=== PATIENT | female | born 1985 | race Caucasian/White ===

== ENCOUNTER → 2018-08-05 | Outpatient (CLI) | payer OTHER ==
[~2018-08-05] VITALS: Ht 162.6 cm; Wt 65.8 kg
[~2018-08-05] MED LIST: IBUP400T18 PO; PRED50TA PO; SINCALIDE 1.32 MCG in IV NORMAL SALINE 50ML 30 ML IV ONE
--- NOTE | 2018-08-05 12:45 | RAD ---
EXAM: Nuclear hepatobiliary scan. HISTORY: Pain. TECHNIQUE: Following intravenous administration of 5.5 mCi Tc 99m Choletec, anterior images of the abdomen were obtained at five minute intervals through one hour. Subsequently, 1.32 mcg CCK was administered and additional images to assess gallbladder ejection fraction were obtained. FINDINGS: There is prompt radiotracer uptake by the liver. No focal defect is seen. There is normal excretion into the biliary tree. The gallbladder is visualized within 15 minutes and there is free flow into the duodenum. The gallbladder ejection fraction is 10.2%. IMPRESSION: Decreased gallbladder ejection fraction of 10.2%. Electronically signed by: Leah Davalos MD (08/05/2018 12:42 PM) [facility]
== END | disposition home or self-care (01) ==
LOC: NM 07:43
PROVIDERS: ATTEND Internal Medicine Gastroenterology
DX: R10.13 Epigastric pain (principal)
CPT/HCPCS: 78226; 96374; 96375; A9537; J2805

== ENCOUNTER 2018-08-07 18:53 | Emergency (ER) | payer OTHER ==
[~2018-08-07] VITALS: Ht 162.6 cm; Wt 65.8 kg
--- NOTE | 2018-08-07 18:57 | ED.ADGEN ---
Past History Past Medical History: Bronchitis, Migraines Adult General Chief Complaint Chief Complaint ".. I hit my head.. 2 days ago.. but I still got a headache..." HPI HPI Patient is a 32 year old female who presents with above hx and complaints persistent headache after striking it on shelf. Patient has mild. Photophobia. Nausea. Patient has contusion left forehead. Patient does have occasional migraines or headaches. Patient denies any travel or specific ill contacts. Patient up-to-date vaccinations. Patient has had recent episodes of bronchitis. Patient's child also had upper respiratory infection. Review of Systems Review of Systems Constitutional: Denies fever or chills [] Eyes: Denies change in visual acuity, redness, or eye pain [] HENT: Denies nasal congestion or sore throat [] Respiratory: Denies cough or shortness of breath [] Cardiovascular: No additional information not addressed in HPI [] GI: Denies abdominal pain, nausea, vomiting, bloody stools or diarrhea [] : Denies dysuria or hematuria [] Musculoskeletal: Denies back pain or joint pain [] Integument: Denies rash or skin lesions [] Neurologic:Complaints of headache,. Denies focal weakness or sensory changes [] Endocrine: Denies polyuria or polydipsia [] All other systems were reviewed and found to be within normal limits, except as documented in this note. Family History Family History Noncontributory Current Medications Current Medications Current Medications Medications (Trade) Dose Ordered Sig/[facility] Start Time Stop Time Status Last Admin Dose Admin Albuterol Sulfate (Ventolin Hfa Inhaler) 2 puff 1X ONCE 08/07/18 20:00 08/07/18 20:01 DC 08/07/18 20:25 2 PUFF Prednisone (Prednisone) 60 mg 1X ONCE 08/07/18 20:00 08/07/18 20:01 DC 08/07/18 20:29 60 MG Allergies Allergies Allergies Coded Allergies Type Severity Reaction Last Updated Verified Penicillins Allergy Unknown 08/05/18 Yes esomeprazole Adverse Reaction Mild 08/05/18 Yes omeprazole Adverse Reaction Mild 08/05/18 Yes ranitidine Adverse Reaction Mild 08/05/18 Yes Physical Exam Physical Exam Constitutional: Well developed, well nourished, moderately acute distress, non- toxic appearance. [] HENT: Normocephalic, contusion to left side of forehead, bilateral external ears normal, oropharynx moist, no oral exudates, nose normal. [] Eyes: PERRLA, EOMI, conjunctiva normal, no discharge. [] Neck: Normal range of motion, no tenderness, supple, no stridor. [] Cardiovascular:Heart rate regular rhythm, no murmur [] Lungs & Thorax: Bilateral breath sounds clear to auscultation [] Abdomen: Bowel sounds normal, soft, no tenderness, no masses, no pulsatile masses. [] Skin: Warm, dry, no erythema, no rash. [] Back: No tenderness, no CVA tenderness. [] Extremities: No tenderness, no cyanosis, no clubbing, ROM intact, no edema. [] Neurologic: Alert and oriented X 3, normal motor function, normal sensory function, no focal deficits noted. []DTRs are +2 patella and brachial. [employer] are equal. No drift. Psychologic: Affect anxious, judgement normal, mood normal. [] Current Patient Data Vital Signs Vital Signs Date Time Temp Pulse Resp B/P (MAP) Pulse Ox O2 Delivery O2 Flow Rate FiO2 08/07/18 19:08 98.6 72 20 99 Room Air Lab Results Laboratory Tests Test 08/07/18 19:30 Urine Collection Type Unknown Urine Color Yellow Urine Clarity Clear Urine pH 6.5 Urine Specific [place] 1.010 Urine Protein Neg (NEG-TRACE) Urine Glucose (UA) Neg mg/dL (NEG) Urine Ketones (Stick) Neg mg/dL (NEG) Urine Blood Mod (NEG) Urine Nitrite Neg (NEG) Urine Bilirubin Neg (NEG) Urine Urobilinogen Dipstick 0.2 mg/dL (0.2 mg/dL) Urine Leukocyte Esterase Neg (NEG) Urine RBC 1-2 /HPF (0-2) Urine WBC 0 /HPF (0-4) Urine Squamous Epithelial Cells Occ /LPF Urine Bacteria 0 /HPF (0-FEW) Urine Opiates Screen Neg (NEG) Urine Methadone Screen Neg (NEG) Urine Barbiturates Neg (NEG) Urine Phencyclidine Screen Neg (NEG) Urine Amphetamine/Methamphetamine Neg (NEG) Urine Benzodiazepines Screen Neg (NEG) Urine Cocaine Screen Neg (NEG) Urine Cannabinoids Screen Neg (NEG) Urine Ethyl Alcohol Neg (NEG) EKG EKG [] Radiology/Procedures Radiology/Procedures [] Course & Med Decision Making Course & Med Decision Making Pertinent Labs and Imaging studies reviewed. (See chart for details). Continue ice packs as needed for pain. Tylenol and ibuprofen for discomfort. Follow-up primary care. Return if any concerns. Use MDI 2 puffs 4 times day. [] Final Impression Final Impression 1. Headache 2. Head injury-possible concussion[] 3. Bronchitis Dragon Disclaimer Dragon Disclaimer This electronic medical record was generated, in whole or in part, using a voice recognition dictation system. QUINCY FIGUEREDO MD Aug 07, 2018 18:57
[2018-08-07 19:08] VITALS: BP 119/89
[2018-08-07] MEDS ORDERED: PRED50TA PO (19:57)
[2018-08-07] MEDS ORDERED: IBUP400T18 PO (19:57)
[2018-08-07 19:58] LABS: BACTERIA,URINE 0 /HPF (0-FEW); BILIRUBIN,URINE NEG (NEG); CLARITY,URINE CLEAR; COLOR,URINE YELLOW; GLUCOSE,URINE NEG (NEG); NITRITE,URINE NEG (NEG); SQUAMOUS EPITHELIAL CELL,UR OCC /LPF; UROBILINOGEN,URINE 0.2 mg/dL (0.2 mg/dL); WBC,URINE 0 /HPF (0-4)
[2018-08-07 19:59] LABS: BARBITURATES NEG (NEG); BENZODIAZEPINES NEG (NEG); CANNABINOIDS NEG (NEG); COCAINE NEG (NEG); METHADONE NEG (NEG); OPIATES NEG (NEG); PHENCYCLIDINE NEG (NEG)
[2018-08-07 20:00] LABS: AMPHETAMINE/METHAMPHETAMINE NEG (NEG)
[2018-08-07] MEDS ORDERED: predniSONE 20 MG TABLET PO ONE (20:00)
[2018-08-07] MEDS ORDERED: ALBUTEROL SULFATE 8GM INHALER. INH ONE (20:00)
--- NOTE | 2018-08-07 20:25 | RAD ---
CT head without contrast: Reason for examination: Hit anterior portion of head yesterday. Still has headaches and dizziness. Axial images were obtained through the brain. No contrast was administered. Exposure: One or more of the following individualized dose reduction techniques were utilized for this examination: 1. Automated exposure control 2. Adjustment of the mA and/or kV according to patient size 3. Use of iterative reconstruction technique. The ventricular systems are symmetric and not abnormally dilated. No midline shift is seen. No intracranial hemorrhage, infarct, mass or edema is seen. No abnormalities are seen at the orbits. The paranasal sinuses and mastoid air cells are clear. No acute abnormality seen in the calvarium. IMPRESSION: No acute intracranial abnormality evident. Electronically signed by: Raisa Sweeney MD (08/07/2018 8:21 PM) [facility]
== END 2018-08-07 20:53 | disposition home or self-care (01) ==
LOC: ER 18:53
DX: S09.90XA Unspecified injury of head, initial encounter (principal); J40 Bronchitis, not specified as acute or chronic; G43.909 Migraine, unspecified, not intractable, without status migrainosus; Z88.0 Allergy status to penicillin; Z88.8 Allergy status to other drugs, medicaments and biological substances; W22.01XA Walked into wall, initial encounter; Y93.89 Activity, other specified; Y92.89 Other specified places as the place of occurrence of the external cause; Y99.8 Other external cause status
CPT/HCPCS: 36415; 70450; 80307; 81001; 94640; 99285; J7512; J7613; G0479

== ENCOUNTER 2018-09-01 17:48 | Emergency (ER) | payer OTHER ==
[~2018-09-01] VITALS: Ht 162.6 cm; Wt 64.0 kg
[~2018-09-01 17:48] MED LIST changes: -SINCALIDE 1.32 MCG in IV NORMAL SALINE 50ML 30 ML IV ONE
[2018-09-01] MEDS ORDERED: SODIUM PHOSPHATES 19/7GM 133 ML ENEMA. PR ONE (18:30)
[2018-09-01] MEDS ORDERED: MAGNESIUM HYDROXIDE 2,400 MG/30 ML ORAL.SUSP. PO ONE (18:30)
[2018-09-01 18:42] LABS: BASO % 1 % (0-3); EOS % 1 % (0-3); HEMATOCRIT 40.2 % (36.0-47.0); HEMOGLOBIN 13.4 g/dL (12.0-15.5); LYMPH # 1.3 x10^3/uL (1.0-4.8); LYMPH % 30 % (24-48); MEAN CORPUSCULAR HEMOGLOBIN 30 pg (25-35); MEAN CORPUSCULAR HGB CONC 33 g/dL (31-37); MEAN CORPUSCULAR VOLUME 89 fL (79-100); MONO # 0.4 x10^3/uL (0.0-1.1); MONO % 10 % (0-9); NEUT # 2.7 x10^3uL (1.8-7.7); NEUT % 59 % (31-73); PLATELET COUNT 197 x10^3/uL (140-400); RED BLOOD COUNT 4.51 x10^6/uL (3.50-5.40); RED CELL DISTRIBUTION WIDTH 12.9 % (11.5-14.5); WHITE BLOOD COUNT 4.5 x10^3/uL (4.0-11.0)
[2018-09-01 18:59] LABS: ALBUMIN 3.4 g/dL (3.4-5.0); ALBUMIN/GLOBULIN RATIO 1.1 (1.0-1.7); CALCIUM 8.2 mg/dL (8.5-10.1); CREATININE 0.9 mg/dL (0.6-1.0); GFR 71.7; POTASSIUM 3.9 mmol/L (3.5-5.1); TOTAL BILIRUBIN 0.3 mg/dL (0.2-1.0); TOTAL PROTEIN 6.6 g/dL (6.4-8.2)
[2018-09-01] MEDS ORDERED: IOHEXOL 300 MG/ML 75 ML VIAL. IV ONE (20:15)
--- NOTE | 2018-09-01 22:02 | PHYS DOC ---
Adult General Chief Complaint Chief Complaint abd pain HPI HPI 33 female who had a laparoscopic cholecystectomy on Wednesday at [facility] presented to the emergency department with right-sided pain and swelling. No fever no chills, she's been taken [place] for pain and hasn't had a bowel movement 3 days Review of Systems Review of Systems Constitutional: Denies fever or chills [] Eyes: Denies change in visual acuity, redness, or eye pain [] HENT: Denies nasal congestion or sore throat [] Respiratory: Denies cough or shortness of breath [] Cardiovascular: No additional information not addressed in HPI [] GI: Denies nausea, vomiting, bloody stools or diarrhea [] : Denies dysuria or hematuria [] Musculoskeletal: Denies back pain or joint pain [] Integument: Denies rash or skin lesions [] Neurologic: Denies headache, focal weakness or sensory changes [] Endocrine: Denies polyuria or polydipsia [] All other systems were reviewed and found to be within normal limits, except as documented in this note. Current Medications Current Medications Current Medications Medications (Trade) Dose Ordered Sig/[facility] Start Time Stop Time Status Last Admin Dose Admin Iohexol (Omnipaque 300 Mg/ml) 75 ml 1X ONCE 09/01/18 20:15 09/01/18 20:16 DC 09/01/18 20:23 75 ML Magnesium Hydroxide (Milk Of Magnesia) 2,400 mg 1X ONCE 09/01/18 18:30 09/01/18 18:31 DC 09/01/18 18:37 2,400 MG Sodium Biphosphate/ Sodium Phosphate (Fleet Adult) 133 ml 1X ONCE 09/01/18 18:30 09/01/18 18:31 DC 09/01/18 18:38 133 ML Allergies Allergies Allergies Coded Allergies Type Severity Reaction Last Updated Verified Penicillins Allergy Unknown 09/01/18 Yes esomeprazole Adverse Reaction Mild 08/05/18 Yes omeprazole Adverse Reaction Mild 08/05/18 Yes ranitidine Adverse Reaction Mild 08/05/18 Yes Physical Exam Physical Exam Constitutional: Well developed, well nourished, no acute distress, non-toxic appearance. [] HENT: Normocephalic, atraumatic, bilateral external ears normal, oropharynx moist, no oral exudates, nose normal. [] Eyes: PERRLA, EOMI, conjunctiva normal, no discharge. [] Neck: Normal range of motion, no tenderness, supple, no stridor. [] Cardiovascular:Heart rate regular rhythm, no murmur [] Lungs & Thorax: Bilateral breath sounds clear to auscultation [] Abdomen: Bowel sounds normal, soft, tenderness right lower quadrant, no masses , no pulsatile masses. [] Skin: Warm, dry, no erythema, no rash. [] Back: No tenderness, no CVA tenderness. [] Extremities: No tenderness, no cyanosis, no clubbing, ROM intact, no edema. [] Neurologic: Alert and oriented X 3, normal motor function, normal sensory function, no focal deficits noted. [] Psychologic: Affect normal, judgement normal, mood normal. [] Current Patient Data Vital Signs Vital Signs Date Time Temp Pulse Resp B/P (MAP) Pulse Ox O2 Delivery O2 Flow Rate FiO2 09/01/18 21:25 72 16 115/75 (88) 97 Room Air 09/01/18 17:55 98.5 Lab Results Laboratory Tests Test 09/01/18 18:28 White Blood Count 4.5 x10^3/uL (4.0-11.0) Red Blood Count 4.51 x10^6/uL (3.50-5.40) Hemoglobin 13.4 g/dL (12.0-15.5) Hematocrit 40.2 % (36.0-47.0) Mean Corpuscular Volume 89 fL (79-100) Mean Corpuscular Hemoglobin 30 pg (25-35) Mean Corpuscular Hemoglobin Concent 33 g/dL (31-37) Red Cell Distribution Width 12.9 % (11.5-14.5) Platelet Count 197 x10^3/uL (140-400) Neutrophils (%) (Auto) 59 % (31-73) Lymphocytes (%) (Auto) 30 % (24-48) Monocytes (%) (Auto) 10 % (0-9) H Eosinophils (%) (Auto) 1 % (0-3) Basophils (%) (Auto) 1 % (0-3) Neutrophils # (Auto) 2.7 x10^3uL (1.8-7.7) Lymphocytes # (Auto) 1.3 x10^3/uL (1.0-4.8) Monocytes # (Auto) 0.4 x10^3/uL (0.0-1.1) Eosinophils # (Auto) 0.0 x10^3/uL (0.0-0.7) Basophils # (Auto) 0.0 x10^3/uL (0.0-0.2) Sodium Level 143 mmol/L (136-145) Potassium Level 3.9 mmol/L (3.5-5.1) Chloride Level 106 mmol/L (98-107) Carbon Dioxide Level 30 mmol/L (21-32) Anion Gap 7 (6-14) Blood Urea Nitrogen 11 mg/dL (7-20) Creatinine 0.9 mg/dL (0.6-1.0) Estimated GFR (Cockcroft-Gault) 71.7 BUN/Creatinine Ratio 12 (6-20) Glucose Level 92 mg/dL (70-99) Calcium Level 8.2 mg/dL (8.5-10.1) L Total Bilirubin 0.3 mg/dL (0.2-1.0) Aspartate Amino Transferase (AST) 846 U/L (15-37) H Alanine Aminotransferase (ALT) 1138 U/L (14-59) H Alkaline Phosphatase 99 U/L (46-116) Total Protein 6.6 g/dL (6.4-8.2) Albumin 3.4 g/dL (3.4-5.0) Albumin/Globulin Ratio 1.1 (1.0-1.7) Lipase 163 U/L (73-393) EKG EKG [] Radiology/Procedures Radiology/Procedures [] Course & Med Decision Making Course & Med Decision Making Pertinent Labs and Imaging studies reviewed. (See chart for details) [] Final Impression Final Impression Had a very lengthy discussion with the patient in the presence of her family advised her to follow-up with her primary care provider in general surgeon also repeat liver enzyme within 3 days.. I advised the patient stated was from Tylenol, statin. Advised the patient to use laxative and stool softener Advised the patient stop hydrocodone with acetaminophen We'll treat her pain with oxycodone [] Problems: (1) Constipation Qualifiers: Qualified Codes: K59.03 - Drug induced constipation (2) Elevated liver enzymes Dragon Disclaimer Dragon Disclaimer This electronic medical record was generated, in whole or in part, using a voice recognition dictation system. DAVID MCKEE MD Sep 01, 2018 22:02
--- NOTE | 2018-09-01 22:13 | RAD ---
EXAM: CT ABDOMEN/PELVIS WITH CONTRAST. HISTORY: Upper abdominal pain, swelling and fever after cholecystectomy. TECHNIQUE: Computed tomography of the abdomen and pelvis was performed after the intravenous administration of 74 mL Omnipaque 300. COMPARISON: None. FINDINGS: Lung windows through the visualized portions of the bases reveal there are trace bilateral pleural effusions with mild basilar atelectasis. Bone windows reveal no suspicious lesions. The gallbladder is surgically absent. There is no postoperative intra-abdominal collection. There is fluid between the right internal and external oblique muscles. This is 8 mm in thickness and spans a region of 14 cm anteroposteriorly and 17 cm craniocaudally. There is a trace focus of gas within the umbilicus, likely postoperative. The liver, spleen, pancreas, adrenal glands and kidneys are unremarkable. There are no pathologically enlarged lymph nodes. There is no small bowel obstruction. The appendix is not inflamed. IMPRESSION: 1. There is postoperative fluid between the internal and external oblique muscles on the right. This is low density and hemorrhage is not favored. It is not clearly loculated. Correlate to exclude infection. 2. No intra-abdominal collection. *One or more of the following individualized dose reduction techniques were utilized for this examination: 1. Automated exposure control. 2. Adjustment of the mA and/or kV according to patient size. 3. Use of iterative reconstruction technique. Electronically signed by: Wendie Reyes MD (09/01/2018 10:10 PM) [facility]
[2018-09-01 22:20] VITALS: BP 118/73
[2018-09-01] MEDS ORDERED: OXYC5TAB95 PO (22:32)
== END 2018-09-01 22:50 | disposition home or self-care (01) ==
LOC: ER 17:48
DX: K59.03 Drug induced constipation (principal); R74.8 Abnormal levels of other serum enzymes; Z88.0 Allergy status to penicillin; Z88.8 Allergy status to other drugs, medicaments and biological substances
CPT/HCPCS: 36415; 74177; 80053; 83690; 85025; 99285; Q9967

== ENCOUNTER → 2018-10-07 | Outpatient (CLI) | payer OTHER ==
[~2018-10-07] MED LIST changes: +OXYC5TAB95 PO
[2018-10-07 15:54] LABS: FREE T4 0.83 ng/dL (0.76-1.46); THYROID STIM HORMONE (TSH) 1.708 uIU/mL (0.358-3.740)
== END | disposition home or self-care (01) ==
LOC: LAB 10:46
PROVIDERS: ATTEND Internal Medicine Gastroenterology
DX: R53.83 Other fatigue (principal)
CPT/HCPCS: 82607; 84439; 84443